=== PATIENT | female | born 1975 | race Caucasian/White ===

== ENCOUNTER 2022-05-02 01:26 | Day surgery (SDC) | payer BC, SELFPAY ==
[2022-04-13 14:25] VITALS: BMI 27.4
[2022-04-13 14:33] VITALS: BMI 27.4
[2022-05-02 09:22] VITALS: BP 115/83; PULSE 88; RESP 16; TEMP 36.3; O2SAT 100; BMI 26.8
[2022-05-02] MEDS: LACTATED RINGERS 1,000 ML 150 ML IV CONT (09:32)
--- NOTE | 2022-05-02 09:55 | PM.HPGS ---
History of Present Illness History of Present Illness Consent: Risks, benefits, and alternatives have been discussed and questions answered. Patient agrees to proceed with procedure. Chief complaint: neoplasm screening Narrative: Haley Olmedo is a 47 year old female here for first screening colonoscopy Review of Systems Constitutional: Constitutional: Denies headache(s) and Denies weakness Eyes: Eyes: Denies blurry vision ENT: Reports Normal hearing present, Denies headache(s) and Denies neck pain Cardiovascular: Cardiovascular: Denies chest pain and Denies dyspnea Respiratory: Respiratory: Denies dyspnea Gastrointestinal: Gastrointestinal: Reports no additional gastrointestinal complaints Genitourinary: Genitourinary: Denies dysuria Musculoskeletal: Musculoskeletal: Denies neck pain Integumentary/Breasts: Skin/Breast: Denies dry skin Neurologic: Reports Normal hearing present, Denies headache(s) and Denies weakness Psychiatric: Psychiatric: Denies anxiety Endocrine: Endocrine: Denies change in body appearance Hematologic/Lymphatic: Hematologic/Lymphatic: Denies easy bleeding Allergic/Immunologic: Allergic/Immunologic: Denies urticaria PMF Past Medical History Medical History (Updated 05/02/22 @ 09:55 by Carlos Wolf MD) Colon cancer screening Hyperlipidemia Vaginal delivery x 2 Family History Family History Mother Hypertension Family history of elevated blood lipids Family history of diabetes mellitus in first degree relative Grandparent Cerebrovascular accident Carcinoma of colon, Onset Age: 57 Family history of coronary artery disease, Onset Age: 50 Social History Social History Smoking status: Never smoker Second hand tobacco smoke exposure: No Alcohol intake: current Substance use type: does not use Living arrangements: with family Meds Home Medications and Allergies Home Medications Medication Instructions Recorded Confirmed Type cholecalciferol (vitamin D3) 1,250 1,250 mcg PO WEEKLY 01/28/21 04/13/22 History mcg (50,000 unit) capsule calcium carbonate 600 mg calcium 600 mg PO DAILY 01/31/22 04/13/22 History (1,500 mg) tablet (Calcium) multivitamin 1 tablet PO DAILY 01/31/22 04/13/22 History omeprazole 20 mg capsule,delayed 20 mg PO DAILY 01/31/22 04/13/22 History release L norgest/E estradiol-E estrad 1 tablet PO DAILY #91 ea 04/25/22 05/02/22 Rx 0.15 mg-30 mcg (84)/10 mcg(7) tabs,3mos (Seasonique) Allergies Allergy/AdvReac Type Severity Reaction Status Date / Time SHELLFISH Allergy Severe HIVES, Uncoded 05/02/22 09:21 ANAPHYLAXIS Shrimp Allergy Intermediate Hives Uncoded 05/02/22 09:21 Vital Signs Vital Signs - 24 hr 05/02/22 09:22 Temperature 97.4 F L Pulse Rate 88 Respiratory Rate 16 Blood Pressure 115/83 Pulse Oximetry 100 Oxygen Delivery Room Air Exam Const: General: comfortable and no acute distress HENMT: General nose exam: Normal nares present Eyes: General: appearance normal, both eyes and all related structures Neck: Neck: no JVD Resp: Auscultation: clear to auscultation bilaterally Cardio: Rate: regular rate Rhythm: regular rhythm GI: Inspection: non-distended GI Palp: Yes Soft to palpation Skin: General skin exam: normal color Neuro: General: gait normal Speech: normal speech Extrem: General: normal to inspection Psych: Mental Status: mental status grossly normal Assessment and Plan Assessment and plan (1) Colon cancer screening: Code(s): Z12.11 - Encounter for screening for malignant neoplasm of colon Status: Acute Assessment and Plan: colonoscopy
--- NOTE | 2022-05-02 10:02 | WPDANESEPPF ---
Anes - Initial Pre Proc Eval Procedure: Operation Date: 05/02/22 10:15 Proposed Procedures p Screening Colonoscopy - Carlos Wolf MD Date/Time: 05/02/22 10:02 Surgeon: Carlos Wolf MD Pre Op Diagnosis: neoplasm screening Patient Data Age: 47 Gender: F Height: 1.7 m Weight: 77.6 kg Last Vital Signs Temp 97.4 F L 05/02/22 09:22 Pulse 88 05/02/22 09:22 Resp 16 05/02/22 09:22 BP 115/83 05/02/22 09:22 Pulse Ox 100 05/02/22 09:22 O2 Del Method Room Air 05/02/22 09:22 Allergies Allergy/AdvReac Type Severity Reaction Status Date / Time SHELLFISH Allergy Severe HIVES, Uncoded 05/02/22 09:21 ANAPHYLAXIS Shrimp Allergy Intermediate Hives Uncoded 05/02/22 09:21 Home Medications Medication Instructions Recorded Confirmed Type cholecalciferol (vitamin D3) 1,250 1,250 mcg PO WEEKLY 01/28/21 04/13/22 History mcg (50,000 unit) capsule calcium carbonate 600 mg calcium 600 mg PO DAILY 01/31/22 04/13/22 History (1,500 mg) tablet (Calcium) multivitamin 1 tablet PO DAILY 01/31/22 04/13/22 History omeprazole 20 mg capsule,delayed 20 mg PO DAILY 01/31/22 04/13/22 History release L norgest/E estradiol-E estrad 1 tablet PO DAILY #91 ea 04/25/22 05/02/22 Rx 0.15 mg-30 mcg (84)/10 mcg(7) tabs,3mos (Seasonique) Patient hx anesthesia problems: none Family hx anesthesia problems: none Results Review: All pre-operative results and documents have been reviewed as part of the pre-operative evaluation. [facility] Past Medical History Medical History (Updated 05/02/22 @ 09:55 by Carlos Wolf MD) Colon cancer screening Hyperlipidemia Vaginal delivery x 2 Family History Family History Mother Hypertension Family history of elevated blood lipids Family history of diabetes mellitus in first degree relative Grandparent Cerebrovascular accident Carcinoma of colon, Onset Age: 57 Family history of coronary artery disease, Onset Age: 50 Social History Social History Smoking status: Never smoker Second hand tobacco smoke exposure: No Alcohol intake: current Substance use type: does not use Living arrangements: with family Anes - Eval Final PreProcedure Day of Procedure 05/02/22 10:02 Patient weight: normal Heart: regular rate and rhythm Lungs: clear to auscultation Airway: Mallampati scale class II Neurological: alert and oriented Last oral intake: >/= 8 hours ASA classification: II Emergent: no Anesthetic plan: proceed Anesthesia type and monitoring: general GIVS and standard monitoring Results Review: All pre-operative results and documents have been reviewed as part of the pre-operative evaluation. Informed Consent: The patient's anesthetic plan and its attendant risks and benefits were discussed with the patient/family/POA. Questions were solicited and answers provided to the satisfaction of the patient/family/POA.
--- NOTE | 2022-05-02 10:21 | SUR.OPER ---
DR POWELL AWARE ASCENDING COLON POLYP NOT RETRIEVED. Kimberly BUTLER, RN & Niall KRUGER RN
[2022-05-02 10:22] VITALS: BP 106/64; PULSE 100; RESP 18; O2SAT 100
[2022-05-02 10:32] VITALS: BP 112/71; PULSE 83; RESP 18; O2SAT 100
[2022-05-02 10:42] VITALS: BP 117/81; PULSE 70; RESP 16; O2SAT 100
== END 2022-05-02 10:50 | disposition home or self-care (01) ==
PROVIDERS: Visit Provider Internal Medicine Gastroenterology
PROC: 0DJD8ZZ Inspection of Lower Intestinal Tract, Via Natural or Artificial Opening Endoscopic (ICD-10-PCS; CPT 45378; principal; 2022-05-02 10:15)
DX: Z12.11 Encounter for screening for malignant neoplasm of colon (principal); K63.5 Polyp of colon; K64.8 Other hemorrhoids
CPT/HCPCS: 45385; J2704; J7120